=== PATIENT | male | born 1990 | race American Indian/Alaskan Native ===

== ENCOUNTER 2018-07-04 22:33 | Emergency (ER) | payer SELFPAY ==
--- NOTE | 2018-07-05 01:20 | Cat Scan Report ---
FINAL REPORT EXAM: CT HEAD/BRAIN WO CON HISTORY: DSOUZA and memory loss COMPARISON: None available. TECHNIQUE: Contiguous axial images were obtained. FINDINGS: There is a partially calcified soft tissue structure which appears to be centered at the level the pi carolyn gland and posterior margin of the 3rd ventricle. This measures 4.9 x 5.1 centimeters in axial di mension and causes obstruction of the 3rd and lateral ventricles. [id number] diffuse cerebral e ryan due to dilatation of ventricular system. Fourth ventricle normal in caliber. No uncal or tonsill ar herniation. No acute intracranial hemorrhage. Calvarium is grossly intact. Ocular globes are grossly unremarkable. Visualized para-nasal sinuses an d mastoid air cells are clear. 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 This ca uses mass effect upon the the sylvian aqueduct and causes moderate dilatation of the lateral and 3rd ventricles. This is most concerning for neoplastic process which could reflect a germ-cell tumor or p ineal blastoma. Other neoplastic lesion not excluded. [id number] diffuse cerebral edema related to hydrocephalus. No acute infarct or intracranial he morrhage.
[2018-07-05 01:37] LABS: Basophils % (Auto) 0.4 % (0.0-1.8); Eosinophils # (Auto) 0.1 K/mm3 (0.0-0.4); Eosinophils % (Auto) 1.3 % (0.0-4.3); Hematocrit 46.5 % (35.5-45.6); Hemoglobin 15.5 gm/dl (11.8-15.2); Lymphocytes # (Auto) 1.6 K/mm3 (1.2-5.4); Lymphocytes % (Auto) 23.3 % (13.4-35.0); Mean Corpuscular HGB Conc 33 % (32-34); Mean Corpuscular Volume 87 fl (84-94); Monocytes # (Auto) 0.6 K/mm3 (0.0-0.8); Monocytes % (Auto) 8.6 % (0.0-7.3); Platelet Count 380 K/mm3 (140-440); Red Blood Count 5.33 M/mm3 (3.65-5.03)
[2018-07-05 01:45] LABS: Alanine Aminotransferase 21 units/L (7-56); Albumin 4.4 g/dL (3.9-5); BUN/Creatinine Ratio 11; Blood Urea Nitrogen 11 mg/dL (9-20); Calcium 9.4 mg/dL (8.4-10.2); Hemolysis Index 16
--- NOTE | 2018-07-05 02:31 | Emergency Department Report ---
ED Headache HPI - General Chief Complaint: Medical Clearance Stated Complaint: MEMORY LOSS Time Seen by Provider: 07/05/18 00:50 - History of Present Illness Initial Comments: 27-year-old -[place] emergency [facility] with his mother. Complains of having sporadic episodes of memory loss since last year. States this is gotten significantly worse in the last month having multiple Short-term and long-term. Also having having some recurrent headaches to the temporal frontal region, associated with nausea and vomiting is not responsive to Motrin. Headaches are sharp and throbbing in nature. Reports having weight loss. States he usually around 16 pounds each several times a day and now is more around 140. No diarrhea or constipation is noted. He does admit to smoking cannabis and cigarettes. He feels that his symptoms may be linked to his cigarette smoking as he still feels that he has been forgetting more often since starting smoking. Headache. Pain fluctuates currently is a 7 of 10, but it is fluctuates solid from 7 down to 0. Fourth no fever, chills, sweats. No neck pain. No muscle spasms Quality: mild, moderate Head Injury Location: frontal Associated Symptoms: nausea/vomiting. denies: fatigue, facial pain, flushing, numbness in legs/feet, sinus infection, stiff neck, vision changes Allergies/Adverse Reactions: Allergies No Known Allergies Allergy (Unverified 07/04/18 22:51) ED Review of Systems ROS: Stated complaint: MEMORY LOSS Other details as noted in HPI Constitutional: denies: chills, fever Eyes: denies: eye pain, eye discharge, vision change ENT: denies: ear pain, throat pain Respiratory: denies: cough, shortness of breath, wheezing Cardiovascular: denies: chest pain, palpitations Endocrine: no symptoms reported Gastrointestinal: denies: abdominal pain, nausea, diarrhea Genitourinary: denies: urgency, dysuria Musculoskeletal: denies: back pain, joint swelling, arthralgia Skin: denies: rash, lesions Neurological: headache. denies: weakness, paresthesias Psychiatric: denies: anxiety, depression Hematological/Lymphatic: denies: easy bleeding, easy bruising ED Past Medical Hx - Past Medical History Previous Medical History?: Yes - Social History Smoking Status: Current Every Day Smoker Substance Use Type: Alcohol, Marijuana ED Physical Exam - General Limitations: No Limitations General appearance: alert, in no apparent distress - Head Head exam: Present: atraumatic, normocephalic - Eye Eye exam: Present: normal appearance, other (negative funduscopic examination). Absent: PERRL, EOMI Pupils: Present: normal accommodation - ENT ENT exam: Present: normal exam, mucous membranes moist, TM's normal bilaterally - Neck Neck exam: Present: normal inspection, full ROM. Absent: tenderness, lymphadenopathy - Respiratory Respiratory exam: Present: normal lung sounds bilaterally. Absent: respiratory distress, wheezes, rales, chest wall tenderness, decreased breath sounds, prolonged expiratory - Cardiovascular Cardiovascular Exam: Present: regular rate, normal rhythm. Absent: systolic murmur, diastolic murmur, rubs, gallop - GI/Abdominal GI/Abdominal exam: Present: soft, normal bowel sounds. Absent: distended, tenderness, hyperactive bowel sounds, hypoactive bowel sounds, organomegaly, mass - Rectal Rectal exam: Present: deferred - External exam: Present: normal external exam - Extremities Exam Extremities exam: Present: normal inspection - Back Exam Back exam: Present: normal inspection. Absent: CVA tenderness (R), CVA tenderness (L) - Neurological Exam Neurological exam: Present: alert, oriented X3, CN II-XII intact, normal gait. Absent: motor sensory deficit - Psychiatric Psychiatric exam: Present: normal affect, normal mood - Skin Skin exam: Present: warm, dry, intact, normal color. Absent: rash ED Course - Consultations Consultation #1: 07/05/18 02:45 Case was discussed with Dr. Maldonado who also reviewed the CT scan report for himself. Plan is to have the patient follow up for outpatient therapy ED Medical Decision Making - Lab Data Result diagrams: 07/05/18 01:14 07/05/18 01:14 - Radiology Data Radiology results: report reviewed - Medical Decision Making On discussion with patient and the mother about the CT scan findings in the follow-up. Several questions were answered. We spoke about 20 minutes discussing the actual reading CT by the radiologist. Diagrams and charts were utilize for viewing. Education understand the importance of follow-up with neurology/neurosurgery/internal medicine in the next few days for further evaluation of this possible malignant process going on with and definitive management. An actual image was provided to the patient and his mother as well. Critical care attestation.: If time is entered above; I have spent that time in minutes in the direct care of this critically ill patient, excluding procedure time. ED Disposition Clinical Impression: Ventricular dilatation, Tumor of pineal gland, Cerebral edema, Brain mass Disposition: DC-01 TO HOME OR SELFCARE Is pt being admited?: No Does the pt Need Aspirin: No Condition: Stable Instructions: Acute Headache (ED), Hydrocephalus (ED) Referrals: PRIMARY CARE, [Primary Care Provider] - 3-5 Days NORA SOTELO MD [Staff Physician] - 3-5 Days EVIE DONALD MD [Staff Physician] - 3-5 Days ORALIA CHERRY MD [Staff Physician] - 3-5 Days SHARYN KAUR MD [Staff Physician] - 3-5 Days JAMA NUÑEZ MD [Staff Physician] - 3-5 Days JEOVANNY NOLAN MD [Referring] - 3-5 Days BARBARA GARVIN MD [Referring] - 3-5 Days ANGELI LLOYD MD [Staff Physician] - 3-5 Days
[2018-07-05 03:24] VITALS: BP 137/69
[2018-07-05] MEDS ORDERED: NORCO 5/325 ONE (03:34)
[2018-07-05] MEDS ORDERED: NORCO 5/325 PO ONE (03:34)
== END 2018-07-05 04:00 | disposition home or self-care (01) ==
LOC: ED 22:33
DX: R60.9 Edema, unspecified (principal); D49.7 Neoplasm of unspecified behavior of endocrine glands and other parts of nervous system; I51.7 Cardiomegaly
CPT/HCPCS: 36415; 70450; 80053; 85025